=== PATIENT | female | born 1950 | race Caucasian/White ===

== ENCOUNTER → 2018-01-02 | Outpatient (CLI) | payer MEDICARE, OTHER | LOC: MC.RAD 13:18 | DX: Z12.31 Encounter for screening mammogram for malignant neoplasm of breast (principal) ==

== ENCOUNTER → 2019-01-08 | Outpatient (CLI) | payer MEDICARE, OTHER | LOC: MC.RAD 14:45 | DX: Z12.31 Encounter for screening mammogram for malignant neoplasm of breast (principal) ==

== ENCOUNTER → 2019-10-07 | Outpatient (CLI) | payer MEDICARE, OTHER | LOC: COL.RAD 10:30 | DX: K50.10 Crohn's disease of large intestine without complications (principal); K83.8 Other specified diseases of biliary tract; K44.9 Diaphragmatic hernia without obstruction or gangrene | CPT/HCPCS: Q9967 ==

== ENCOUNTER → 2020-01-13 | Outpatient (CLI) | payer MEDICARE, OTHER | LOC: MC.RAD 14:15 | DX: Z12.31 Encounter for screening mammogram for malignant neoplasm of breast (principal) ==

== ENCOUNTER → 2020-02-13 | Outpatient (CLI) | payer MEDICARE, OTHER | LOC: COL.RAD 12:00 | DX: N83.202 Unspecified ovarian cyst, left side (principal) ==

== ENCOUNTER → 2021-01-13 | Outpatient (CLI) | payer MEDICARE, OTHER | LOC: MC.RAD 14:58 | DX: Z12.31 Encounter for screening mammogram for malignant neoplasm of breast (principal) ==

== ENCOUNTER → 2022-01-17 | Outpatient (CLI) | payer MEDICARE, OTHER | LOC: MC.RAD 14:51 | DX: Z12.31 Encounter for screening mammogram for malignant neoplasm of breast (principal) ==

== ENCOUNTER 2022-05-31 13:53 | Outpatient (CLI) | payer MEDICARE, OTHER ==
[~2022-05-31] VITALS: Ht 157.5 cm; Wt 61.4 kg
[~2022-05-31 13:53] MED LIST: 00186-0372-20 IH; APRISO0.375 GM PO; DESYREL DIVIDO150 M1 PO; FIBERCON PO; NORCO 325 MG-101 TAB PO; ONE-A-DAY ESSE1 EACH PO; PREDNISONE 5MG5 MG PO; PROBIOTIC BLEN1 EACH PO; PROTONIX 40MG T40 MG PO; PROZAC60 MG PO; VITAMIN B11000 MCG/M IM; VITAMIN D 50,1.25 MG PO; XANAX .25M0.25 MG/TA PO
[2022-05-31 14:48] LABS: HEMATOCRIT 40.4 % (37.0-47.0); HEMOGLOBIN 13.6 g/dl (12.5-16.0); MEAN CELL VOLUME 87 fl (80.0-100.0); MEAN CORPUSCULAR HEMOGLOBIN 29 pg (27-31); MEAN CORPUSCULAR HGB CONC 34 g/dl (33.0-37.0); MEAN PLATELET VOLUME 9.2 fl (7.4-10.4); PLATELET COUNT 409 K/mm3 (130-400); RED BLOOD COUNT 4.67 M/mm3 (4.10-5.30); REDCELL DISTRIBUTION WIDTH-CV 13.2 % (11.5-14.5)
[2022-05-31] MEDS ORDERED: CALCIUM 600MG+D1 TAB PO (14:50)
[2022-05-31 15:03] LABS: ALBUMIN 3.9 gm/dL (3.4-4.8); BILIRUBIN,TOTAL 0.3 mg/dL (0.2-1.2); CALCIUM 10.2 mg/dL (8.4-10.2); CREATININE, serum 0.77 mg/dL (0.57-1.11); POTASSIUM 3.4 mmol/L (3.5-4.5); TOTAL PROTEIN 7.7 gm/dL (6.2-8.1)
[2022-05-31 15:23] LABS: BAND 3 % (0-10); LYMPHOCYTE 20 % (20.0-51.0); METAMYELOCYTE 1 % (0-0); NEUTROPHILS 66 % (42.0-75.2); PLATELET ESTIMATE NORMAL (NORMAL)
[2022-05-31 15:35] VITALS: BP 146/78; PULSE 88; TEMP 98.6
[2022-10-18] MEDS ORDERED: NEURONTIN400 MG/CAP PO (14:54)
[2022-10-18] MEDS ORDERED: LASIX 20MG TABL20 MG PO (14:55)
[2022-11-08] MEDS ORDERED: RT ADVAIR HFA 412 GM IH (20:14)
[2022-11-08] MEDS ORDERED: ENTYVIO IV (20:16)
[2023-01-02] MEDS ORDERED: NEURONTIN400 MG/CAP PO (08:18)
[2023-02-02] MEDS ORDERED: CLEOCIN HCL300 MG PO (21:25)
[2023-03-24] MEDS ORDERED: WELLBUTRIN SR100 M1 PO (16:19)
[2023-03-24] MEDS ORDERED: EVENITY (2210 MG/2.3 SQ (17:03)
[2023-04-10] MEDS ORDERED: FOCALIN XR20 MG PO (09:13)
[2023-04-10] MEDS ORDERED: ENTYVIO IV (09:18)
[2023-04-10] MEDS ORDERED: WELLBUTRIN SR100 M1 PO (09:22)
== END 2022-05-31 19:29 | disposition home or self-care (01) ==
LOC: EUO 13:53
PROVIDERS: Internal Medicine Gastroenterology
DX: K50.90 Crohn's disease, unspecified, without complications (principal); M54.16 Radiculopathy, lumbar region
CPT/HCPCS: J1200; J2930; J3380; J7050

== ENCOUNTER → 2022-06-28 | Outpatient (CLI) | payer MEDICARE, OTHER ==
[~2022-06-28] VITALS: Ht 157.5 cm; Wt 64.3 kg
[~2022-06-28] MED LIST changes: +CALCIUM 600MG+D1 TAB PO
[2022-06-28 14:54] LABS: BASO # 0.1 K/mm3 (0.0-0.2); EOS # 0.1 K/mm3 (0.0-0.7); EOS % 1.3 % (0.0-4.0); GRAN # 3.4 K/mm3 (1.4-6.5); GRAN % 55.7 % (42.2-75.2); HEMATOCRIT 37.1 % (37.0-47.0); HEMOGLOBIN 12.6 g/dl (12.5-16.0); LYMPH # 2.1 K/mm3 (1.2-3.4); LYMPH % 33.8 % (20.0-51.0); MEAN CELL VOLUME 87 fl (80.0-100.0); MEAN CORPUSCULAR HEMOGLOBIN 30 pg (27-31); MEAN CORPUSCULAR HGB CONC 34 g/dl (33.0-37.0); MEAN PLATELET VOLUME 9.4 fl (7.4-10.4); MONO # 0.5 K/mm3 (0.1-0.6); MONO % 7.9 % (1.7-9.3); PLATELET COUNT 347 K/mm3 (130-400); RED BLOOD COUNT 4.25 M/mm3 (4.10-5.30); REDCELL DISTRIBUTION WIDTH-CV 13.6 % (11.5-14.5)
[2022-06-28 15:14] LABS: ALBUMIN 4.1 gm/dL (3.4-4.8); BILIRUBIN,TOTAL 0.5 mg/dL (0.2-1.2); CALCIUM 10.4 mg/dL (8.4-10.2); CREATININE, serum 0.78 mg/dL (0.57-1.11); POTASSIUM 3.7 mmol/L (3.5-4.5); TOTAL PROTEIN 7.8 gm/dL (6.2-8.1)
[2022-06-28 15:40] VITALS: BP 133/78; PULSE 77; TEMP 98.4
== END ==
LOC: EUO 14:00
PROVIDERS: Internal Medicine Gastroenterology
DX: K50.90 Crohn's disease, unspecified, without complications (principal)
CPT/HCPCS: J1200; J2930; J3380; J7050

== ENCOUNTER 2023-02-09 14:10 | Outpatient (CLI) | payer MEDICARE, OTHER ==
[~2023-02-09 14:10] MED LIST changes: +CLEOCIN HCL300 MG PO; +ENTYVIO IV; +LASIX 20MG TABL20 MG PO; +NEURONTIN400 MG/CAP PO; +RT ADVAIR HFA 412 GM IH
[2023-02-09 14:38] LABS: BASO % 0.6 % (0.0-2.0); EOS # 0.2 K/mm3 (0.0-0.7); EOS % 2.4 % (0.0-4.0); GRAN # 4.6 K/mm3 (1.4-6.5); GRAN % 64.1 % (42.2-75.2); LYMPH # 1.6 K/mm3 (1.2-3.4); LYMPH % 22.7 % (20.0-51.0); MEAN CELL VOLUME 87 fl (80.0-100.0); MEAN CORPUSCULAR HEMOGLOBIN 28 pg (27-31); MEAN CORPUSCULAR HGB CONC 32 g/dl (33.0-37.0); MEAN PLATELET VOLUME 9.5 fl (7.4-10.4); MONO # 0.7 K/mm3 (0.1-0.6); MONO % 9.9 % (1.7-9.3); PLATELET COUNT 325 K/mm3 (130-400); RED BLOOD COUNT 3.94 M/mm3 (4.10-5.30); REDCELL DISTRIBUTION WIDTH-CV 14.4 % (11.5-14.5)
[2023-02-09 14:39] LABS: HEMATOCRIT 34.2 % (37.0-47.0)
[2023-02-09 14:56] LABS: ALBUMIN 3.9 gm/dL (3.4-4.8); BILIRUBIN,TOTAL 0.3 mg/dL (0.2-1.2); CALCIUM 8.9 mg/dL (8.4-10.2); CREATININE, serum 0.81 mg/dL (0.57-1.11); TOTAL PROTEIN 7.1 gm/dL (6.2-8.1)
[2023-02-09 15:11] VITALS: BP 115/62; PULSE 83; TEMP 98
--- NOTE | 2023-02-09 16:31 | NUR ---
IV site wrapped with coban. Pt exits dept with walker, accompanies her out.
== END 2023-02-09 16:32 | disposition home or self-care (01) ==
LOC: EUO 14:10
PROVIDERS: Internal Medicine Gastroenterology
DX: K50.90 Crohn's disease, unspecified, without complications (principal)
CPT/HCPCS: J1200; J2930; J3380; J7050

== ENCOUNTER → 2023-03-28 | Outpatient (CLI) | payer MEDICARE, OTHER ==
[~2023-03-28] MED LIST changes: +EVENITY (2210 MG/2.3 SQ; +WELLBUTRIN SR100 M1 PO
== END ==
LOC: CANSCHCLI → MC.RAD 15:55
DX: Z12.31 Encounter for screening mammogram for malignant neoplasm of breast (principal)

== ENCOUNTER 2023-06-07 14:59 | Outpatient (CLI) | payer MEDICARE, OTHER, BC ==
[~2023-06-07] VITALS: Ht 152.4 cm; Wt 61.0 kg
[~2023-06-07 14:59] MED LIST changes: +FOCALIN XR20 MG PO
[2023-06-07 15:22] LABS: BASO # 0.1 K/mm3 (0.0-0.2); BASO % 0.8 % (0.0-2.0); EOS # 0.3 K/mm3 (0.0-0.7); EOS % 4.4 % (0.0-4.0); GRAN # 3.7 K/mm3 (1.4-6.5); GRAN % 59.1 % (42.2-75.2); HEMATOCRIT 37.6 % (37.0-47.0); HEMOGLOBIN 12.2 g/dl (12.5-16.0); LYMPH # 1.8 K/mm3 (1.2-3.4); LYMPH % 28.9 % (20.0-51.0); MEAN CELL VOLUME 88 fl (80.0-100.0); MEAN CORPUSCULAR HEMOGLOBIN 29 pg (27-31); MEAN CORPUSCULAR HGB CONC 32 g/dl (33.0-37.0); MEAN PLATELET VOLUME 10.3 fl (7.4-10.4); MONO # 0.4 K/mm3 (0.1-0.6); MONO % 6.5 % (1.7-9.3); PLATELET COUNT 281 K/mm3 (130-400); RED BLOOD COUNT 4.26 M/mm3 (4.10-5.30)
[2023-06-07 15:40] LABS: BILIRUBIN,TOTAL 0.2 mg/dL (0.2-1.2); CALCIUM 9.5 mg/dL (8.4-10.2); CREATININE, serum 0.82 mg/dL (0.57-1.11); TOTAL PROTEIN 7.5 gm/dL (6.2-8.1)
[2023-06-07] MEDS ORDERED: diphenhydrAMINE 50 MG/ML 1 ML VIAL IV ONE (15:45)
[2023-06-07] MEDS ORDERED: Acetaminophen 500 MG TAB PO ONE (15:45)
[2023-06-07] MEDS ORDERED: methylPREDNISolone Sod Succ 125 MG/2 ML VIAL IV ONE (15:45)
[2023-06-07 16:15] VITALS: BP 115/66; PULSE 91; TEMP 98.7
[2023-06-07] MEDS ORDERED: Vedolizumab 300 MG in NS 250 ML IV SCH (16:15)
--- NOTE | 2023-06-07 16:56 | NUR ---
pt tolerated infusion well. vs remained within normal limits and pt ambulated with walker to main lobby following infusion. IV discontinued upon discharge.
== END 2023-06-07 16:57 | disposition home or self-care (01) ==
LOC: EUO 14:59
PROVIDERS: Internal Medicine Gastroenterology
DX: K50.90 Crohn's disease, unspecified, without complications (principal)
CPT/HCPCS: J1200; J2930; J3380; J7050

== ENCOUNTER 2023-06-23 15:05 | Outpatient (CLI) | payer MEDICARE, OTHER, BC ==
[~2023-06-23] VITALS: Ht 152.4 cm; Wt 61.7 kg
[2023-06-23 15:21] VITALS: BP 119/69; PULSE 88; TEMP 98.5
[2023-06-23] MEDS ORDERED: Romosozumab-aqqg 210 MG/2.34 ML 2-Syringe KIT SQ ONE (15:30)
--- NOTE | 2023-06-23 15:46 | NUR ---
Pt tolerated evenity injections without issue. SHe and exit dept, pt's gait steady with wheeled walker.
== END 2023-06-23 15:48 | disposition home or self-care (01) ==
LOC: EUO 15:05
DX: Q78.2 Osteopetrosis (principal); M80.00XS Age-related osteoporosis with current pathological fracture, unspecified site, sequela
CPT/HCPCS: J3111

== ENCOUNTER → 2023-07-19 | Outpatient (CLI) | payer MEDICARE, OTHER ==
[~2023-07-19] VITALS: Ht 152.4 cm; Wt 58.5 kg
[~2023-07-19] MED LIST changes: +RT ADVAIR 128 DISKUS; +Triamcinolone 40 MG/ML 1 ML VIAL IJ SCH
[2023-07-19 13:15] VITALS: BP 144/78; PULSE 80; TEMP 98.3
[2023-07-19 13:55] VITALS: BP 147/71; PULSE 86
== END ==
LOC: COL.RAD 12:50
DX: M48.062 Spinal stenosis, lumbar region with neurogenic claudication (principal)
CPT/HCPCS: J0665; J3301

== ENCOUNTER 2023-07-24 14:01 | Outpatient (CLI) | payer MEDICARE, OTHER ==
[~2023-07-24] VITALS: Ht 152.4 cm; Wt 57.5 kg
[~2023-07-24 14:01] MED LIST changes: -Triamcinolone 40 MG/ML 1 ML VIAL IJ SCH
[2023-07-24 14:13] VITALS: BP 130/60; PULSE 85; TEMP 98.3
[2023-07-24] MEDS ORDERED: Romosozumab-aqqg 210 MG/2.34 ML 2-Syringe KIT SQ ONE (14:15)
--- NOTE | 2023-07-24 14:22 | NUR ---
pt tolerated injections well. vs remained within normal limits and pt was assisted to main lobby via walker and was accompanied by . pt free from concerns and complaints at time of discharge.
== END 2023-07-24 14:26 | disposition home or self-care (01) ==
LOC: EUO 14:01
DX: Q78.2 Osteopetrosis (principal); M80.00XS Age-related osteoporosis with current pathological fracture, unspecified site, sequela
CPT/HCPCS: J3111

== ENCOUNTER 2023-08-02 14:01 | Outpatient (CLI) | payer MEDICARE, OTHER, BC ==
[~2023-08-02] VITALS: Ht 152.4 cm; Wt 58.2 kg
[2023-08-02 14:31] LABS: BASO % 0.5 % (0.0-2.0); EOS # 0.3 K/mm3 (0.0-0.7); EOS % 4.7 % (0.0-4.0); GRAN # 3.7 K/mm3 (1.4-6.5); GRAN % 58.4 % (42.2-75.2); HEMOGLOBIN 10.5 g/dl (12.5-16.0); LYMPH # 1.9 K/mm3 (1.2-3.4); LYMPH % 29.4 % (20.0-51.0); MEAN CELL VOLUME 91 fl (80.0-100.0); MEAN CORPUSCULAR HEMOGLOBIN 29 pg (27-31); MEAN CORPUSCULAR HGB CONC 32 g/dl (33.0-37.0); MEAN PLATELET VOLUME 10.5 fl (7.4-10.4); MONO # 0.4 K/mm3 (0.1-0.6); MONO % 6.8 % (1.7-9.3); PLATELET COUNT 279 K/mm3 (130-400); RED BLOOD COUNT 3.59 M/mm3 (4.10-5.30); REDCELL DISTRIBUTION WIDTH-CV 14.3 % (11.5-14.5)
[2023-08-02 14:32] LABS: HEMATOCRIT 32.5 % (37.0-47.0)
[2023-08-02] MEDS ORDERED: Acetaminophen 500 MG TAB PO ONE (14:45)
[2023-08-02] MEDS ORDERED: methylPREDNISolone Sod Succ 125 MG/2 ML VIAL IV ONE (14:45)
[2023-08-02] MEDS ORDERED: diphenhydrAMINE 50 MG/ML 1 ML VIAL IV ONE (14:45)
[2023-08-02 14:49] LABS: ALBUMIN 3.9 gm/dL (3.4-4.8); BILIRUBIN,TOTAL 0.3 mg/dL (0.2-1.2); CALCIUM 8.7 mg/dL (8.4-10.2); CREATININE, serum 0.8 mg/dL (0.57-1.11); POTASSIUM 3.1 mmol/L (3.5-4.5); TOTAL PROTEIN 6.8 gm/dL (6.2-8.1)
[2023-08-02 15:00] VITALS: BP 152/69; PULSE 78; TEMP 97.8
[2023-08-02] MEDS ORDERED: Vedolizumab 300 MG in NS 250 ML IV SCH (15:00)
[2023-08-02] MEDS ORDERED: PROAIR HFA0.09 MG/AC IH (16:06)
[2023-08-02] MEDS ORDERED: FOCALIN XR25 MG PO (16:07)
[2023-08-02] MEDS ORDERED: ENTYVIO IV (16:08)
[2023-08-02] MEDS ORDERED: FERROUSAL325 MG PO (16:09)
== END 2023-08-02 16:12 ==
LOC: EUO 14:01
PROVIDERS: Internal Medicine Gastroenterology
DX: K50.90 Crohn's disease, unspecified, without complications (principal)
CPT/HCPCS: J1200; J2930; J3380; J7050

== ENCOUNTER 2023-09-27 13:53 | Outpatient (CLI) | payer MEDICARE, OTHER ==
[~2023-09-27] VITALS: Ht 152.4 cm; Wt 55.2 kg
[~2023-09-27 13:53] MED LIST changes: +FERROUSAL325 MG PO; +FOCALIN XR25 MG PO; +PROAIR HFA0.09 MG/AC IH
[2023-09-27 14:29] LABS: BASO % 0.5 % (0.0-2.0); EOS # 0.3 K/mm3 (0.0-0.7); EOS % 5.6 % (0.0-4.0); GRAN # 3.1 K/mm3 (1.4-6.5); HEMOGLOBIN 11.5 g/dl (12.5-16.0); LYMPH # 1.9 K/mm3 (1.2-3.4); LYMPH % 32.8 % (20.0-51.0); MEAN CELL VOLUME 88 fl (80.0-100.0); MEAN CORPUSCULAR HEMOGLOBIN 29 pg (27-31); MEAN CORPUSCULAR HGB CONC 33 g/dl (33.0-37.0); MEAN PLATELET VOLUME 10.4 fl (7.4-10.4); MONO # 0.5 K/mm3 (0.1-0.6); MONO % 8.8 % (1.7-9.3); PLATELET COUNT 222 K/mm3 (130-400); RED BLOOD COUNT 4.02 M/mm3 (4.10-5.30); REDCELL DISTRIBUTION WIDTH-CV 13.3 % (11.5-14.5)
[2023-09-27 14:30] LABS: HEMATOCRIT 35.4 % (37.0-47.0)
[2023-09-27 14:46] LABS: ALBUMIN 3.7 g/dL (3.4-4.8); BILIRUBIN,TOTAL 0.2 mg/dL (0.2-1.2); CALCIUM 8.9 mg/dL (8.4-10.2); CREATININE, serum 0.81 mg/dL (0.57-1.11); POTASSIUM 3.9 mEq/L (3.5-4.5); TOTAL PROTEIN 6.7 g/dl (6.2-8.1)
[2023-09-27] MEDS ORDERED: methylPREDNISolone Sod Succ 125 MG/2 ML VIAL IV ONE (15:00)
[2023-09-27] MEDS ORDERED: diphenhydrAMINE 50 MG/ML 1 ML VIAL IV ONE (15:00)
[2023-09-27] MEDS ORDERED: Vedolizumab 300 MG in NS 250 ML IV SCH (15:00)
[2023-09-27] MEDS ORDERED: Acetaminophen 500 MG TAB PO ONE (15:00)
[2023-09-27 15:15] VITALS: BP 129/69; PULSE 70; TEMP 98.3
== END 2023-09-27 16:17 ==
LOC: EUO 13:53
PROVIDERS: Internal Medicine Gastroenterology
DX: K50.90 Crohn's disease, unspecified, without complications (principal)
CPT/HCPCS: J3380; J7050

== ENCOUNTER 2023-11-22 14:17 | Outpatient (CLI) | payer MEDICARE, OTHER, BC ==
[~2023-11-22] VITALS: Ht 152.4 cm; Wt 56.2 kg
[2023-11-22 14:38] VITALS: BP 127/70; PULSE 71; TEMP 97.7
[2023-11-22 14:47] LABS: BASO % 0.3 % (0.0-2.0); EOS # 0.3 K/mm3 (0.0-0.7); EOS % 4.1 % (0.0-4.0); GRAN # 4.2 K/mm3 (1.4-6.5); GRAN % 62.3 % (42.2-75.2); HEMOGLOBIN 11.8 g/dl (12.5-16.0); LYMPH # 1.5 K/mm3 (1.2-3.4); MEAN CELL VOLUME 89 fl (80.0-100.0); MEAN CORPUSCULAR HEMOGLOBIN 29 pg (27-31); MEAN CORPUSCULAR HGB CONC 32 g/dl (33.0-37.0); MEAN PLATELET VOLUME 9.6 fl (7.4-10.4); MONO # 0.7 K/mm3 (0.1-0.6); MONO % 10.1 % (1.7-9.3); PLATELET COUNT 259 K/mm3 (130-400); RED BLOOD COUNT 4.08 M/mm3 (4.10-5.30); REDCELL DISTRIBUTION WIDTH-CV 15.9 % (11.5-14.5)
[2023-11-22 14:51] LABS: HEMATOCRIT 36.4 % (37.0-47.0)
[2023-11-22 15:10] LABS: ALBUMIN 3.9 g/dL (3.4-4.8); BILIRUBIN,TOTAL 0.4 mg/dL (0.2-1.2); CALCIUM 9.5 mg/dL (8.4-10.2); CREATININE, serum 0.85 mg/dL (0.57-1.11); POTASSIUM 4.1 mEq/L (3.5-4.5); TOTAL PROTEIN 6.9 g/dl (6.2-8.1)
[2023-11-22] MEDS ORDERED: Acetaminophen 500 MG TAB PO ONE (15:15)
[2023-11-22] MEDS ORDERED: methylPREDNISolone Sod Succ 125 MG/2 ML VIAL IV ONE (15:15)
[2023-11-22] MEDS ORDERED: diphenhydrAMINE 50 MG/ML 1 ML VIAL IV ONE (15:15)
[2023-11-22] MEDS ORDERED: Vedolizumab 300 MG in NS 250 ML IV SCH (15:35)
--- NOTE | 2023-11-22 15:40 | NUR ---
Pt reports she does not take premedications prior to infusion.
== END 2023-11-22 16:27 ==
LOC: EUO 14:17
PROVIDERS: Internal Medicine Gastroenterology
DX: K50.90 Crohn's disease, unspecified, without complications (principal)
CPT/HCPCS: J3380; J7050

== ENCOUNTER 2024-01-17 14:15 | Outpatient (CLI) | payer MEDICARE, OTHER ==
[~2024-01-17] VITALS: Ht 152.4 cm; Wt 59.2 kg
[2024-01-17 14:50] LABS: BASO # 0.1 K/mm3 (0.0-0.2); BASO % 0.6 % (0.0-2.0); EOS # 0.4 K/mm3 (0.0-0.7); EOS % 4.7 % (0.0-4.0); GRAN # 3.6 K/mm3 (1.4-6.5); GRAN % 46.4 % (42.2-75.2); HEMATOCRIT 37.3 % (37.0-47.0); HEMOGLOBIN 12.5 g/dl (12.5-16.0); LYMPH # 2.8 K/mm3 (1.2-3.4); LYMPH % 36.2 % (20.0-51.0); MEAN CELL VOLUME 90 fl (80.0-100.0); MEAN CORPUSCULAR HEMOGLOBIN 30 pg (27-31); MEAN CORPUSCULAR HGB CONC 34 g/dl (33.0-37.0); MEAN PLATELET VOLUME 9.6 fl (7.4-10.4); MONO # 0.9 K/mm3 (0.1-0.6); MONO % 11.8 % (1.7-9.3); PLATELET COUNT 288 K/mm3 (130-400); RED BLOOD COUNT 4.14 M/mm3 (4.10-5.30); REDCELL DISTRIBUTION WIDTH-CV 14.4 % (11.5-14.5)
[2024-01-17 15:09] LABS: ALBUMIN 3.8 g/dL (3.4-4.8); BILIRUBIN,TOTAL 0.2 mg/dL (0.2-1.2); CALCIUM 9.3 mg/dL (8.4-10.2); CREATININE, serum 1.22 mg/dL (0.57-1.11); TOTAL PROTEIN 6.9 g/dl (6.2-8.1)
[2024-01-17] MEDS ORDERED: Acetaminophen 500 MG TAB PO ONE (15:15)
[2024-01-17] MEDS ORDERED: diphenhydrAMINE 50 MG/ML 1 ML VIAL IV ONE (15:15)
[2024-01-17] MEDS ORDERED: methylPREDNISolone Sod Succ 125 MG/2 ML VIAL IV ONE (15:15)
[2024-01-17 15:30] VITALS: BP 100/64; PULSE 72; TEMP 98.4
[2024-01-17] MEDS ORDERED: Vedolizumab 300 MG in NS 250 ML IV SCH (15:30)
== END 2024-01-17 16:30 | disposition home or self-care (01) ==
LOC: EUO 14:15
PROVIDERS: Internal Medicine Gastroenterology
DX: K50.90 Crohn's disease, unspecified, without complications (principal)
CPT/HCPCS: J3380; J7050

== ENCOUNTER → 2024-02-01 | Outpatient (CLI) | payer MEDICARE, OTHER ==
[~2024-02-01] VITALS: Ht 152.4 cm; Wt 60.5 kg
[~2024-02-01] MED LIST changes: +Triamcinolone 40 MG/ML 1 ML VIAL IJ SCH
[2024-02-01 13:11] VITALS: BP 111/74; PULSE 79; TEMP 97.9
[2024-02-01 14:00] VITALS: BP 129/83; PULSE 85
== END ==
LOC: COL.RAD 12:50
DX: M48.062 Spinal stenosis, lumbar region with neurogenic claudication (principal)
CPT/HCPCS: J0665; J3301

== ENCOUNTER 2024-02-14 15:15 | Outpatient (CLI) | payer MEDICARE, OTHER, BC ==
[~2024-02-14] VITALS: Ht 152.4 cm; Wt 61.6 kg
[~2024-02-14 15:15] MED LIST changes: +Denosumab 60 MG/ML SYRINGE SQ ONE; -Triamcinolone 40 MG/ML 1 ML VIAL IJ SCH
[2024-02-14 15:28] VITALS: BP 118/70; PULSE 76; TEMP 98.4
--- NOTE | 2024-02-14 15:38 | NUR ---
PT TOLERATED INJECTION WELL. VS REMAINED WITHIN NORMAL LIMITS. PT AMBUALTED TO MAIN LOBBY WITH UPON DISCHARGE. PT REMAINED FREE FROM ACUTE CONCERNS AND COMPLAINTS.
== END 2024-02-14 15:39 | disposition home or self-care (01) ==
LOC: EUO 15:15
DX: M81.0 Age-related osteoporosis without current pathological fracture (principal)
CPT/HCPCS: J0897

== ENCOUNTER 2024-03-12 14:00 | Outpatient (CLI) | payer MEDICARE, OTHER, BC ==
[~2024-03-12] VITALS: Ht 152.4 cm; Wt 59.0 kg
[~2024-03-12 14:00] MED LIST changes: -Denosumab 60 MG/ML SYRINGE SQ ONE
[2024-03-12 14:26] LABS: BASO # 0.1 K/mm3 (0.0-0.2); BASO % 0.8 % (0.0-2.0); EOS # 0.3 K/mm3 (0.0-0.7); EOS % 4.8 % (0.0-4.0); GRAN # 2.9 K/mm3 (1.4-6.5); GRAN % 45.5 % (42.2-75.2); HEMOGLOBIN 12.3 g/dl (12.5-16.0); LYMPH # 2.2 K/mm3 (1.2-3.4); LYMPH % 33.3 % (20.0-51.0); MEAN CELL VOLUME 90 fl (80.0-100.0); MEAN CORPUSCULAR HEMOGLOBIN 31 pg (27-31); MEAN CORPUSCULAR HGB CONC 34 g/dl (33.0-37.0); MEAN PLATELET VOLUME 9.6 fl (7.4-10.4); PLATELET COUNT 321 K/mm3 (130-400); RED BLOOD COUNT 4.02 M/mm3 (4.10-5.30); REDCELL DISTRIBUTION WIDTH-CV 13.3 % (11.5-14.5)
[2024-03-12 14:35] LABS: HEMATOCRIT 36.2 % (37.0-47.0)
[2024-03-12 14:49] LABS: ALBUMIN 3.7 g/dL (3.4-4.8); BILIRUBIN,TOTAL 0.2 mg/dL (0.2-1.2); CALCIUM 9.2 mg/dL (8.4-10.2); CREATININE, serum 0.86 mg/dL (0.57-1.11); POTASSIUM 3.7 mEq/L (3.5-4.5); TOTAL PROTEIN 7.1 g/dl (6.2-8.1)
[2024-03-12] MEDS ORDERED: diphenhydrAMINE 50 MG/ML 1 ML VIAL IV ONE (15:45)
[2024-03-12] MEDS ORDERED: Vedolizumab 300 MG in NS 250 ML IV SCH (15:45)
[2024-03-12] MEDS ORDERED: Acetaminophen 500 MG TAB PO ONE (15:45)
[2024-03-12] MEDS ORDERED: methylPREDNISolone Sod Succ 125 MG/2 ML VIAL IV ONE (15:45)
[2024-03-12 15:50] VITALS: BP 96/60; PULSE 77; TEMP 97.7
--- NOTE | 2024-03-12 15:54 | NUR ---
Patient refudes offer of premedications prior to Entyvio.
== END 2024-03-12 16:32 ==
LOC: EUO 14:00
PROVIDERS: Internal Medicine Gastroenterology
DX: K50.90 Crohn's disease, unspecified, without complications (principal)
CPT/HCPCS: J3380; J7050